=== PATIENT | male | born 2000 | race Caucasian/White ===

== ENCOUNTER 2022-11-03 16:08 | Emergency (ER) | payer MEDICAID ==
[2022-11-03] MEDS ORDERED: Sodium Chloride 0.9% 10 ML Syringe FLUSH PRN (16:23)
[2022-11-03] MEDS ORDERED: Sodium Chloride 0.9% 1,000 ML IV ONE (16:36)
[2022-11-03] MEDS ORDERED: Albuterol/Ipratropium 3.0-0.5 MG/3 ML Neb Soln NEB ONE (16:36)
[2022-11-03] MEDS ORDERED: cefTRIAXone 2 GM in Sodium Chloride 0.9% 50 ML IV ONE (16:37)
[2022-11-03] MEDS ORDERED: cefTRIAXone 2 GM AdvVial IV ONE (16:50)
[2022-11-03 17:09] LABS: CORONAVIRUS COVID-19 NAA NEGATIVE (NEGATIVE)
[2022-11-03] MEDS ORDERED: Sodium Chloride 0.9% 500 ML IV ONE (18:03)
[2022-11-03] MEDS ORDERED: Norepinephrine Bit/D5W Premix 4 MG in Premix Bag 1 BAG IV SCH (18:15)
== END 2022-11-03 18:33 ==
LOC: JP.ED 16:08
DX: A41.9 Sepsis, unspecified organism (principal); J96.01 Acute respiratory failure with hypoxia; N17.9 Acute kidney failure, unspecified; J10.1 Influenza due to other identified influenza virus with other respiratory manifestations; I95.9 Hypotension, unspecified; Q90.9 Down syndrome, unspecified; Z91.018 Allergy to other foods; Z79.899 Other long term (current) drug therapy; Z20.822 Contact with and (suspected) exposure to COVID-19
CPT/HCPCS: 0241U; 36415; 36600; 71045; 72040; 80048; 80076; 82803; 83605; 84145; 85025; 86140; 87040; 93005; 94640; 96365; 96375; 99285; J0696; J3490; J7030; J7040; J7620